=== PATIENT | male | born 1980 | race Hispanic/Latino ===

== ENCOUNTER 2019-03-26 12:41 | Emergency (ER) | payer SELFPAY ==
[2019-03-26] MEDS ORDERED: Adacel (T-DAP) 0.5 ML SYRINGE ONE (13:12)
--- NOTE | 2019-03-26 13:54 | RAD ---
XR Finger(s) Lt Min 2 View History: Injury Comparison: None. Findings: There is soft tissue and partial osseous amputation distal phalanx tuft index finger. Same is true for the dorsal tuft distal phalanx middle finger. Fine bony detail evaluation is limited due to overlying bandage. Impression: Soft tissue and low-grade osseous amputations of the index and ring fingers.
[2019-03-26] MEDS ORDERED: HYDROcodone/Acetaminophen 7.5/325 mg Tablet ONE (14:16)
[2019-03-26] MEDS ORDERED: Lidocaine 1% (PF) 30 ML VIAL ONE (14:38)
[2019-03-26] MEDS ORDERED: Bacitracin 1 PK ONE (16:40)
== END 2019-03-26 16:57 | disposition home or self-care (01) ==
LOC: ERS 12:41
DX: S62.631A Displaced fracture of distal phalanx of left index finger, initial encounter for closed fracture (principal); S62.633A Displaced fracture of distal phalanx of left middle finger, initial encounter for closed fracture; Z23 Encounter for immunization; W27.0XXA Contact with workbench tool, initial encounter
CPT/HCPCS: 12002; 90471; 90715; J2001